=== PATIENT | female | born 1960 | race Caucasian/White ===

== ENCOUNTER → 2019-03-16 | Outpatient (CLI) | payer BC ==
--- NOTE | 2019-03-17 12:53 | MM ---
Reason for exam: screening (asymptomatic). Last mammogram was performed 2 years and 11 months ago. History: Patient is postmenopausal. Family history of breast cancer in maternal aunt at age 50. Benign right mammotome panel of the right breast, July 20, 2012. Physical Findings: A clinical breast exam by your physician is recommended on an annual basis and results should be correlated with mammographic findings. MG Screening Mammo w CAD Bilateral CC and MLO view(s) were taken. XCCM view(s) were taken of the right breast. Prior study comparison: April 17, 2016, bilateral MG screening mammo w CAD. April 12, 2015, bilateral MG diagnostic mammo w CAD THI. The breast tissue is heterogeneously dense. This may lower the sensitivity of mammography. Previous mammotome biopsy in the right breast. There is chronic nodularity in the left breast. There is no discrete abnormality. ASSESSMENT: Benign, BI-RAD 2 RECOMMENDATION: Routine screening mammogram of both breasts in 1 year.
== END | disposition home or self-care (01) ==
LOC: RADMAMWWP 12:03
PROVIDERS: ATTEND Family Medicine
DX: Z12.31 Encounter for screening mammogram for malignant neoplasm of breast (principal)
CPT/HCPCS: 77067

== ENCOUNTER → 2019-06-26 | Outpatient (CLI) | payer BC ==
--- NOTE | 2019-06-27 08:24 | CT ---
EXAMINATION TYPE: CT abdomen pelvis w con DATE OF EXAM: 06/26/2019 COMPARISON: None HISTORY: Pt c/o RT side abdomen pain by ribs, that radiates both anterior and posterior CT DLP: 1434 mGycm Automated exposure control for dose reduction was used. TECHNIQUE: Helical acquisition of images was performed from the lung bases through the pelvis. CONTRAST: Performed with Oral Contrast and with IV Contrast, patient injected with 100 mL of Isovue 300. FINDINGS: LUNG BASES: No significant abnormality is appreciated. LIVER/GB: Hepatomegaly and diffuse fatty infiltration of the liver with focal fatty sparing around th e gallbladder fossa. No intrahepatic lesion identified. Gallbladder appears normal. Intrahepatic and extrahepatic biliary ducts appear normal. PANCREAS: No significant abnormality is seen. SPLEEN: No significant abnormality is seen. ADRENALS: No significant abnormality is seen. KIDNEYS: No significant abnormality is seen. FREE AIR: No free air is visualized. RETROPERITONEAL ADENOPATHY: None visualized REPRODUCTIVE ORGANS: No significant abnormality is seen URINARY BLADDER: No significant abnormality is seen. PELVIC ADENOPATHY: None visualized. OSSEOUS STRUCTURES: No significant abnormality is seen. BOWEL: No significant abnormality is seen. IMPRESSION: HEPATOMEGALY AND HEPATIC STEATOSIS. NO INTRAHEPATIC LESION IDENTIFIED.
== END | disposition home or self-care (01) ==
LOC: RADCTMAIN 14:49
PROVIDERS: ATTEND Family Medicine
DX: K76.0 Fatty (change of) liver, not elsewhere classified (principal)
CPT/HCPCS: 74177; Q9967

== ENCOUNTER 2020-06-04 08:32 | Day surgery (SDC) | payer BC ==
[~2020-06-04 08:32] MED LIST: LACTATED RINGERS 1,000 ML IV SCH
[2020-06-04 08:50] VITALS: TEMP 97.8
[2020-06-04] MEDS ORDERED: LIDOCAINE 1% (10MG/ML) FOR IV START INTRADERMA ONE (08:50)
[2020-06-04] MEDS ORDERED: LACTATED RINGERS 1,000 ML IV ONE (08:50)
[2020-06-04] MEDS ORDERED: PROPOFOL 10 MG/ML 20 ML VIAL IV ONE (09:31)
--- NOTE | 2020-06-04 09:35 | P.GSHP ---
History of Present Illness H&P Date: 06/04/20 Chief Complaint: Colon cancer screening Patient is here today for colonoscopy. Last colonoscopy 10 years ago. That study was normal. Some right-sided abdominal pain. CAT scans normal. Family history of colon cancer in her aunt. No bowel complaints. Past Medical History Past Medical History: No Reported History History of Any Multi-Drug Resistant Organisms: None Reported Past Surgical History: Orthopedic Surgery Additional Past Surgical History / Comment(s): ARTHRO OF LEFT KNEE Past Anesthesia/Blood Transfusion Reactions: Motion Sickness Past Psychological History: No Psychological Hx Reported Smoking Status: Never smoker Past Alcohol Use History: Rare Past Drug Use History: None Reported Medications and Allergies Home Medications Medication Instructions Recorded Confirmed Type No Known Home Medications 05/31/20 05/31/20 History Allergies Allergy/AdvReac Type Severity Reaction Status Date / Time No Known Allergies Allergy Verified 05/31/20 11:09 Surgical - Exam Vital Signs Temp Pulse Resp BP Pulse Ox 97.8 F 70 18 152/81 99 06/04/20 08:49 06/04/20 08:49 06/04/20 08:49 06/04/20 08:49 06/04/20 08:49 Physical exam: General: Well-developed, well-nourished HEENT: Normocephalic, sclerae nonicteric Abdomen: Nontender, nondistended Extremities: No edema Neuro: Alert and oriented Assessment and Plan (1) Colon cancer screening Narrative/Plan: Will proceed with colonoscopy Current Visit: Yes Status: Acute Code(s): Z12.11 - ENCOUNTER FOR SCREENING FOR MALIGNANT NEOPLASM OF COLON SNOMED Code(s): 736354632
--- NOTE | 2020-06-04 09:51 | P.PCN ---
Date of Procedure: 06/04/20 Procedure(s) Performed: PREOPERATIVE DIAGNOSIS: Colon cancer screening POSTOPERATIVE DIAGNOSIS: Normal exam PROCEDURE: Colonoscopy ANESTHESIA: MAC SURGEON: Garrett Rai M.D. SPECIMENS: None ENDOSCOPIC PROCEDURE: The patient was placed on the endoscopy table in the left decubitus position. The Olympus colonoscope was inserted into the anus and passed under direct visualization to the base of the cecum. The appendiceal orifice was visualized. From that point the scope was slowly withdrawn inspecti ng all surfaces carefully. There were no neoplastic inflammatory or polypoid lesions throughout the cecum, ascending, transverse, descending, sigmoid and rectum. There was no visible diverticulosis noted. Digital rectal examination was normal. The patient was taken to the recovery room in stable condition per anesthesia guidelines. RECOMMENDATIONS: Increase fiber. Follow-up colonoscopy in 10 years.
[2020-06-04 10:09] VITALS: BP 127/83; PULSE 64; RESP 15
== END 2020-06-04 11:02 | disposition home or self-care (01) ==
LOC: ORWHC2ENDO 08:32
PROVIDERS: ATTEND Surgery
DX: Z12.11 Encounter for screening for malignant neoplasm of colon (principal); Z80.0 Family history of malignant neoplasm of digestive organs; Z98.890 Other specified postprocedural states
CPT/HCPCS: G0105; J2704

== ENCOUNTER 2020-09-14 14:15 | Observation (INO) | payer BC ==
[2020-09-14] MEDS ORDERED: NITROGLYCERIN OINT 1 INCH/GM PACKET TOPICAL STA (14:32)
[2020-09-14] MEDS ORDERED: NITROGLYCERIN SL TABS 0.4 MG TAB SUBLINGUAL STA (14:32)
[2020-09-14] MEDS ORDERED: ASPIRIN 81 MG PO STA (14:32)
--- NOTE | 2020-09-14 14:45 | ED ---
General Adult HPI - General Source: patient, RN notes reviewed, old records reviewed Mode of arrival: ambulatory Limitations: no limitations <Shaggy Flanagan - Last Filed: 09/14/20 14:46> <Jaguar Gutiérrez - Last Filed: 09/14/20 16:36> - General Chief complaint: Chest Pain Stated complaint: chest pain Time Seen by Provider: 09/14/20 14:20 - History of Present Illness Initial comments: This is a 60-year-old female presents emergency Department complaining of chest pressure that started this morning at approximately 7:00 this morning. Patient states the pain did radiate to her left shoulder a little and the pain still is persistent. Patient states the pain is less than it was earlier but it still there. Patient denies any difficulty breathing shortness of breath per patient denies any diaphoretic episodes. Patient denies any nausea. Patient denies lightheadedness dizziness or near syncopal episode. Patient denies any headache patient denies numbness weakness. Patient denies any abdominal pain patient denies nausea vomiting diarrhea. She denies any recent fever chills. Patient denies any calf pain or leg swelling. (Shaggy Flanagan) - Related Data Home Medications Medication Instructions Recorded Confirmed Aspirin 81 mg PO ONCE PRN 09/14/20 09/14/20 Allergies Allergy/AdvReac Type Severity Reaction Status Date / Time No Known Allergies Allergy Verified 09/14/20 16:28 Review of Systems ROS Other: All systems not noted in ROS Statement are negative. <Shaggy Flanagan - Last Filed: 09/14/20 14:46> ROS Other: All systems not noted in ROS Statement are negative. <Jaguar Gutiérrez - Last Filed: 09/14/20 16:36> ROS Statement: Those systems with pertinent positive or pertinent negative responses have been documented in the HPI. Past Medical History Past Medical History: No Reported History History of Any Multi-Drug Resistant Organisms: None Reported Past Surgical History: Orthopedic Surgery Additional Past Surgical History / Comment(s): ARTHRO OF LEFT KNEE, Past Anesthesia/Blood Transfusion Reactions: Motion Sickness Past Psychological History: No Psychological Hx Reported Smoking Status: Never smoker Past Alcohol Use History: Rare Past Drug Use History: None Reported <Shaggy Flanagan - Last Filed: 09/14/20 14:46> General Exam Limitations: no limitations <Shaggy Flanagan - Last Filed: 09/14/20 14:46> - General Exam Comments Initial Comments: GENERAL: Patient is well-developed and well-nourished. Patient is nontoxic and well- hydrated and is in mild distress. ENT: Neck is soft and supple. No significant lymphadenopathy is noted. Oropharynx is clear. Moist mucous membranes. Neck has full range of motion without eliciting any pain EYES: The sclera were anicteric and conjunctiva were pink and moist. Extraocular movements were intact and pupils were equal round and reactive to light. Eyelids were unremarkable. PULMONARY: Unlabored respirations. Good breath sounds bilaterally. No audible rales rhonchi or wheezing was noted. CARDIOVASCULAR: There is a regular rate and rhythm without any murmurs gallops or rubs. ABDOMEN: Soft and nontender with normal bowel sounds. SKIN: Skin is clear with no lesions or rashes and otherwise unremarkable. NEUROLOGIC: Patient is alert and oriented x3. Cranial nerves II through XII are grossly intact. Motor and sensory are also intact. Normal speech, volume and content. Symmetrical smile. MUSCULOSKELETAL: Normal extremities with adequate strength and full range of motion. No lower extremity swelling or edema. No calf tenderness. LYMPHATICS: No significant lymphadenopathy is noted PSYCHIATRIC: Normal psychiatric evaluation. (Shaggy Flanagan) Course <Jaguar Gutiérrez - Last Filed: 09/14/20 16:36> Vital Signs 09/14/20 09/14/20 14:19 15:15 Temperature 98.3 F Pulse Rate 70 62 Respiratory 18 18 Rate Blood Pressure 176/96 154/89 O2 Sat by Pulse 97 99 Oximetry - Reevaluation(s) Reevaluation #1: 09/14/20 16:34 Patient was endorsed me by Dr. Flanagan pending laboratory work. Patient did have chest pain was about 2/10 severity on my initial exam but this did quickly resolved. The patient does have nitroglycerin paste. The patient's initial workup appears be negative for acute findings however this. The presentation is consistent with angina. I did a long discussion with the patient and her who is a cardiac patient patient be admitted with cardiology consultation. Currently is pain-free. 09/14/20 16:35 Case is discussed with Dr. Blount (Jaguar Gutiérrez) Medical Decision Making <Shaggy Flanagan - Last Filed: 09/14/20 14:46> - Lab Data Result diagrams: 09/14/20 14:46 09/14/20 14:46 <Jaguar Gutiérrez - Last Filed: 09/14/20 16:36> - Medical Decision Making EKG shows normal sinus rhythm at 71 bpm WV interval 146 dresses 92 QT interval is 428 QTC is 465. Patient's EKG shows no ST segment elevation or depression. Dr. Gutiérrez will be taking over the care of this patient at 3 PM. (Shaggy Flanagan) - Lab Data Lab Results 09/14/20 09/14/20 09/14/20 Range/Units 14:46 14:46 14:46 WBC 9.4 (3.8-10.6) k/uL RBC 5.29 (3.80-5.40) m/uL Hgb 15.6 (11.4-16.0) gm/dL Hct 46.9 H (34.0-46.0) % MCV 88.6 (80.0-100.0) fL MCH 29.6 (25.0-35.0) pg MCHC 33.4 (31.0-37.0) g/dL RDW 12.3 (11.5-15.5) % Plt Count 375 (150-450) k/uL Neutrophils % 51 % Lymphocytes % 37 % Monocytes % 6 % Eosinophils % 3 % Basophils % 1 % Neutrophils # 4.7 (1.3-7.7) k/uL Lymphocytes # 3.5 (1.0-4.8) k/uL Monocytes # 0.5 (0-1.0) k/uL Eosinophils # 0.3 (0-0.7) k/uL Basophils # 0.1 (0-0.2) k/uL PT 10.7 (9.0-12.0) sec INR 1.0 (<1.2) APTT 27.9 (22.0-30.0) sec Sodium 138 (137-145) mmol/L Potassium 4.0 (3.5-5.1) mmol/L Chloride 104 (98-107) mmol/L Carbon Dioxide 29 (22-30) mmol/L Anion Gap 5 mmol/L BUN 12 (7-17) mg/dL Creatinine 0.78 (0.52-1.04) mg/dL Est GFR (CKD-EPI)AfAm >90 (>60 ml/min/1.73 sqM) Est GFR (CKD-EPI)NonAf 83 (>60 ml/min/1.73 sqM) Glucose 113 H (74-99) mg/dL Calcium 9.2 (8.4-10.2) mg/dL Magnesium 2.1 (1.6-2.3) mg/dL Total Bilirubin 0.5 (0.2-1.3) mg/dL AST 36 (14-36) U/L ALT 31 (4-34) U/L Alkaline Phosphatase 85 (38-126) U/L Troponin I (0.000-0.034) ng/mL Total Protein 7.4 (6.3-8.2) g/dL Albumin 4.4 (3.5-5.0) g/dL 09/14/20 Range/Units 14:46 WBC (3.8-10.6) k/uL RBC (3.80-5.40) m/uL Hgb (11.4-16.0) gm/dL Hct (34.0-46.0) % MCV (80.0-100.0) fL MCH (25.0-35.0) pg MCHC (31.0-37.0) g/dL RDW (11.5-15.5) % Plt Count (150-450) k/uL Neutrophils % % Lymphocytes % % Monocytes % % Eosinophils % % Basophils % % Neutrophils # (1.3-7.7) k/uL Lymphocytes # (1.0-4.8) k/uL Monocytes # (0-1.0) k/uL Eosinophils # (0-0.7) k/uL Basophils # (0-0.2) k/uL PT (9.0-12.0) sec INR (<1.2) APTT (22.0-30.0) sec Sodium (137-145) mmol/L Potassium (3.5-5.1) mmol/L Chloride (98-107) mmol/L Carbon Dioxide (22-30) mmol/L Anion Gap mmol/L BUN (7-17) mg/dL Creatinine (0.52-1.04) mg/dL Est GFR (CKD-EPI)AfAm (>60 ml/min/1.73 sqM) Est GFR (CKD-EPI)NonAf (>60 ml/min/1.73 sqM) Glucose (74-99) mg/dL Calcium (8.4-10.2) mg/dL Magnesium (1.6-2.3) mg/dL Total Bilirubin (0.2-1.3) mg/dL AST (14-36) U/L ALT (4-34) U/L Alkaline Phosphatase (38-126) U/L Troponin I <0.012 (0.000-0.034) ng/mL Total Protein (6.3-8.2) g/dL Albumin (3.5-5.0) g/dL Critical Care Time Critical Care Time: Yes Total Critical Care Time: 31 <Jaguar Gutiérrez - Last Filed: 09/14/20 16:36> Critical Care Time: Critical care time includes initial presentation with history physical labs x-ra ys reevaluation the patient by me. Discussed with the patient family regarding findings discussed with Dr. Blount admitting orders documentation of the above (Jaguar Gutiérrez) Disposition <Shaggy Flanagan - Last Filed: 09/14/20 14:46> <Jaguar Gutiérrez - Last Filed: 09/14/20 16:36> Clinical Impression: Chest pain, Unstable angina pectoris Disposition: ADMITTED IP TO THIS [facility] Condition: Stable Referrals: Jurgen Lacy MD [Primary Care Provider] - 1-2 days
[2020-09-14 15:00] LABS: Basophils # (A) 0.1 k/uL (0-0.2); Basophils % (A) 1 %; Eosinophils # (A) 0.3 k/uL (0-0.7); Eosinophils % (A) 3 %; HCT 46.9 % (34.0-46.0); HGB 15.6 gm/dL (11.4-16.0); Lymphocytes # (A) 3.5 k/uL (1.0-4.8); Lymphocytes % (A) 37 %; MCH 29.6 pg (25.0-35.0); MCHC 33.4 g/dL (31.0-37.0); MCV 88.6 fL (80.0-100.0); Mean Platelet Volume 6.7; Monocytes # (A) 0.5 k/uL (0-1.0); Monocytes % (A) 6 %; Neutrophils # (A) 4.7 k/uL (1.3-7.7); Neutrophils % (A) 51 %; Platelet Count 375 k/uL (150-450); RBC 5.29 m/uL (3.80-5.40); RDW 12.3 % (11.5-15.5); WBC 9.4 k/uL (3.8-10.6)
[2020-09-14 15:09] LABS: ALT 31 U/L (4-34); AST 36 U/L (14-36); African American GFR (CKD) >90 (>60 ml/min/1.73 sqM); Albumin 4.4 g/dL (3.5-5.0); Alkaline Phosphatase 85 U/L (38-126); Anion Gap 5 mmol/L; Blood Urea Nitrogen 12 mg/dL (7-17); Calcium 9.2 mg/dL (8.4-10.2); Carbon Dioxide 29 mmol/L (22-30); Chloride 104 mmol/L (98-107); Glucose 113 mg/dL (74-99); Magnesium 2.1 mg/dL (1.6-2.3); Non-African American GFR(CKD) 83 (>60 ml/min/1.73 sqM); Sodium 138 mmol/L (137-145); Total Bilirubin 0.5 mg/dL (0.2-1.3); Total Protein 7.4 g/dL (6.3-8.2)
[2020-09-14 15:12] LABS: Partial Thromboplastin Time 27.9 sec (22.0-30.0); Prothrombin Time 10.7 sec (9.0-12.0)
--- NOTE | 2020-09-14 15:16 | XR ---
EXAMINATION TYPE: XR chest 2V DATE OF EXAM: 09/14/2020 COMPARISON: None INDICATION: Chest pain left side TECHNIQUE: Frontal and lateral views of the chest are obtained. FINDINGS: The heart size is normal. The pulmonary vasculature is normal. The lungs are clear. IMPRESSION: 1. No acute pulmonary process.
[2020-09-14] MEDS ORDERED: HEPARIN SODIUM,PORCINE 5,000 UNIT/ML 1 ML VIAL IV ONE (16:36)
[2020-09-14] MEDS ORDERED: HEPARIN SOD,PORK IN 0.45% NACL 25,000 UNIT in 0.45% NACL 1 250ML.BAG IV SCH (16:45)
[2020-09-14] MEDS ORDERED: SODIUM CHLORIDE 0.9% 1,000 ML IV SCH (16:45)
[2020-09-14] MEDS: NITROGLYCERIN OINT 1 INCH/GM PACKET TOPICAL SCH ×2 (18:15→22:35)
[2020-09-14] MEDS: ACETAMINOPHEN TAB 325 MG TAB PO PRN (19:47)
[2020-09-14] MEDS: NITROGLYCERIN SL TABS 0.4 MG TAB SUBLINGUAL PRN ×2 (22:07→22:16)
--- NOTE | 2020-09-14 22:36 | P.HPIM ---
History of Present Illness H&P Date: 09/14/20 Chief Complaint: Chest Pressure Patient is a 60-year-old female without significant past medical history came to ER with complaints of chest pressure. Patient states that she developed mid retrosternal and left sided chest pain started around 7 this morning and did radiate to the left shoulder. Pain is associated with nausea and no episodes of vomiting. No complaints of shortness of breath or diaphoresis. Patient has been having constant pain until she arrived in the ER. Patient was given a dose of aspirin and nitroglycerin which seems to subsided the pain. Patient is currently complaining of headache. No blurriness of vision and no focal weakness. Patient otherwise denied any complaints of recent illnesses. No fever no chills. No cough or sputum production. No nausea vomiting or abdominal pain or diarrhea. No leg swelling. No palpitations. No syncopal episode. Chest x-ray showed no acute pulmonary process EKG showed normal sinus rhythm Laboratory data showed troponin x1 - AST ALT alk phos within normal limits. Liver and laboratory data reviewed. Review of Systems Constitutional: Patient denies any fever or chills . No generalized weakness or weight loss. Abdomen: Patient denied nausea vomiting and diarrhea and abdominal pain. Cardiovascular: Patient denies any chest pain or short of breath no palpitations. Respiratory: patient denied any cough or sputum production. No shortness of breath Neurologic: Patient denied any numbness or tingling headache. Musculoskeletal: Patient denies any complaints of joint swelling or deformity. Skin: Negative Psychiatric: Negative Endocrine: No heat or cold intolerance. No recent weight gain. Genitourinary: No dysuria or hematuria. All other 14 point ROS negative except the above Past Medical History Past Medical History: No Reported History History of Any Multi-Drug Resistant Organisms: None Reported Past Surgical History: Orthopedic Surgery Additional Past Surgical History / Comment(s): ARTHRO OF LEFT KNEE, Past Anesthesia/Blood Transfusion Reactions: Motion Sickness Past Psychological History: No Psychological Hx Reported Smoking Status: Never smoker Past Alcohol Use History: Rare Past Drug Use History: None Reported - Past Family History Mother Family Medical History: Chest Pain / Angina, Dementia, Hypertension Additional Family Medical History / Comment(s): Alzheimers Father Family Medical History: Dementia, Myocardial Infarction ([place]) Medications and Allergies Home Medications Medication Instructions Recorded Confirmed Type Aspirin 81 mg PO ONCE PRN 09/14/20 09/14/20 History Allergies Allergy/AdvReac Type Severity Reaction Status Date / Time No Known Allergies Allergy Verified 09/14/20 16:28 Physical Exam Vitals: Vital Signs Temp Pulse Pulse Resp BP BP Pulse Ox 09/14/20 17:48 97.9 F 67 16 140/89 97 09/14/20 17:15 63 18 141/79 100 09/14/20 15:15 62 18 154/89 99 09/14/20 14:19 98.3 F 70 18 176/96 97 Intake and Output 09/14/20 09/14/20 09/14/20 06:59 14:59 22:59 Other: Weight 86.183 kg PHYSICAL EXAMINATION: Patient is lying in the bed comfortably, no acute distress, awake alert and oriented.. HEENT: Normocephalic. Neck is supple. Pupils reactive. Nostrils clear. Oral cavity is moist. Ears reveal no drainage. Neck reveals no JVD, carotid bruits, or thyromegaly. CHEST EXAMINATION: Trachea is central. Symmetrical expansion. Lung chaney clear to auscultation and percussion. CARDIAC: Normal S1, S2 with no gallops. No murmurs ABDOMEN: Soft. Bowel sounds normal. No organomegaly. No abdominal bruits. Extremities: reveal no edema. No clubbing or cyanosis Neurologically awake, alert, oriented x3 with well-coordinated movements. No focal deficits noted Skin: No rash or skin lesions. Psychiatric: Coperative. Nonsuicidal Musculoskeletal: No joint swelling or deformity. Normal range of motion. Results CBC & Chem 7: 09/14/20 14:46 09/14/20 14:46 Labs: Abnormal Lab Results - Last 24 Hours (Table) 09/14/20 09/14/20 Range/Units 14:46 14:46 Hct 46.9 H (34.0-46.0) % Glucose 113 H (74-99) mg/dL Assessment and Plan Assessment: Chest pain possible unstable angina Obesity BMI 35.9 Plan: Patient will be continued on telemetry monitoring. Troponin 3. Continue with heparin drip and follow lipid profile. Will order TSH level and d-dimer level Cardiology was consulted. Continue with aspirin and statins. Further recommendations based on the clinical course. Time with Patient: Greater than 30
[2020-09-15] MEDS: ACETAMINOPHEN TAB 325 MG TAB PO PRN ×2 (02:42→10:11)
[2020-09-15] MEDS: NITROGLYCERIN OINT 1 INCH/GM PACKET TOPICAL SCH ×2 (06:12→08:15)
[2020-09-15 08:35] LABS: D-Dimer <0.17 mg/L FEU (<0.60); Partial Thromboplastin Time 51.7 sec (22.0-30.0)
[2020-09-15] MEDS ORDERED: ASPIRIN 325 MG TAB PO SCH (09:00)
[2020-09-15] MEDS ORDERED: ALPRAZolam 0.25 MG TAB PO PRN (09:26)
[2020-09-15] MEDS ORDERED: ALPRAZolam 0.5 MG TAB PO PRN (09:26)
[2020-09-15] MEDS ORDERED: NITROGLYCERIN SL TABS 0.4 MG TAB SUBLINGUAL PRN (09:26)
[2020-09-15] MEDS ORDERED: ATORVASTATIN 20 MG TAB PO SCH (09:45)
[2020-09-15] MEDS: LOSARTAN 25 MG TAB PO SCH (10:05)
--- NOTE | 2020-09-15 12:57 | P.CRDCN ---
History of Present Illness Consult date: 09/15/20 Consult reason: chest pain History of present illness: History of present illness: This is a 60-year-old female patient with no significant past medical history. Patient states she woke up and experienced left-sided chest pain that went through to her back into her shoulder. This was onset around 7 AM. She got up for a little while and sat but try to go back to sleep. By 3 PM she still had the pain, she took some aspirin at home. She has been working on [employer] in a [employer] but does not feel that she had a muscle strain from this activity. Her blood pressure at home was 188/94. She came into the hospital for evaluation and was given nitroglycerin, aspirin and Nitropaste. Her chest pain lessened and finally went away completely. She developed headache and Nitropaste was removed, approximately one hour later her chest pain returned. The pain was in the left side and went through to her back. She states that she has been under increased stress as her has extensive cardiac history and had 2 stents placed recently. 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 Initial blood pressure 176/96, heart rate 70, pulse ox 97% on room air. Initial EKG had nonspecific ST changes and repeat this morning was a normal sinus rhythm with no ST changes. CBC, CMP unremarkable except for glucose of 113 with no history of diabetes. Troponin negative on 3 draws. Triglycerides 145, cholesterol 159, LDL 85, HDL 45. TSH 1.7. D-dimer less than 0.17. Patient was started on a heparin drip which was subsequently discontinued as well as Nitropaste was discontinued. Patient started on Lipitor 20 mg daily and losartan 25 mg. Patient was provided options of stress testing or heart catheterization and shows 2 pursue heart catheterization which will be scheduled for tomorrow. Family history of father having his first myocardial infarction at age 65. Mother has history of hypertension. Social history: Patient is a lifelong nonsmoker, no alcohol use. Review Of Systems: At the time of my evaluation: Constitutional: No fever, no chills. No weakness, fatigue or lethargy. EENT: No headache. No dizziness. Lungs: No shortness of breath, cough, no sputum production. No wheezing. Cardiovascular: No chest pain, no lower extremity edema. No palpitations. No paroxysmal nocturnal dyspnea. No orthopnea. No lightheadedness or dizziness. No syncopal episodes. Abdominal: No abdominal pain. No nausea, vomiting. No diarrhea. No constipation. Genitourinary: No dysuria. Musculoskeletal: No myalgias. No muscle weakness, no gait dysfunction, no frequent falls. Integumentary: No wounds, no rash or pruritus. Neurologic: No aphasia. No facial droop. No change in mentation. No head injury. No headache. Psychiatric: Reports increased stress and anxiety. Physical examination: Gen: This is a 60-year-old female. She is resting in bed and appears to be comfortable and in no acute distress. VS: Afebrile, heart rate 69, blood pressure 148/81, pulse ox 94% on room air HEENT: Head is atraumatic, normocephalic. Pupils equal, round. Sclerae is anicteric. NECK: Supple. No JVD. No lymphadenopathy. No thyromegaly. LUNGS: Clear to auscultation. No wheezes or rhonchi. No intercostal retractions. HEART: Regular rate and rhythm. No murmur. ABDOMEN: Soft. Bowel sounds are present. No masses. No tenderness. EXTREMITIES: No pedal edema. No calf tenderness. NEUROLOGICAL: Patient is awake, alert and oriented x3. Cranial nerves 2 through 12 are grossly intact. Assessment: Chest pain with family history of RI at young age, normal troponins Uncontrolled hypertension Generalized anxiety Plan: Discontinue heparin drip Start losartan 25 mg daily and monitor blood pressure closely Scheduled for left heart catheterization tomorrow, physician performing pr ocedure to be determined Obtain 2-D echocardiogram and Doppler study to assess cardiac structure and function Further recommendations to follow based upon clinical course Thank you kindly for this consultation. Nurse practitioner note has been reviewed, I agree with documented findings and plan of care. Patient was seen and examined. Past Medical History Past Medical History: No Reported History History of Any Multi-Drug Resistant Organisms: None Reported Past Surgical History: Orthopedic Surgery Additional Past Surgical History / Comment(s): ARTHRO OF LEFT KNEE, Past Anesthesia/Blood Transfusion Reactions: Motion Sickness Past Psychological History: No Psychological Hx Reported Smoking Status: Never smoker Past Alcohol Use History: Rare Past Drug Use History: None Reported - Past Family History Mother Family Medical History: Chest Pain / Angina, Dementia, Hypertension Additional Family Medical History / Comment(s): Alzheimers Father Family Medical History: Dementia, Myocardial Infarction (RI) Medications and Allergies Home Medications Medication Instructions Recorded Confirmed Type Aspirin 81 mg PO ONCE PRN 09/14/20 09/14/20 History Allergies Allergy/AdvReac Type Severity Reaction Status Date / Time No Known Allergies Allergy Verified 09/14/20 16:28 Physical Exam Vitals: Vital Signs Temp Pulse Pulse Resp BP BP Pulse Ox 09/15/20 07:51 97.8 F 69 16 148/81 94 L 09/15/20 02:50 97.7 F 70 18 127/72 94 L 09/14/20 21:00 97.5 F L 67 18 136/75 97 09/14/20 17:48 97.9 F 67 16 140/89 97 09/14/20 17:15 63 18 141/79 100 09/14/20 15:15 62 18 154/89 99 09/14/20 14:19 98.3 F 70 18 176/96 97 Intake and Output 09/14/20 09/15/20 09/15/20 23:59 06:59 14:59 Intake Total 0 Balance 0 Intake: Intake, IV Titration Amount Heparin Sod,Pork in 0.45% NaCl 25,000 unit In 0.45 % NaCl 1 250ml.bag @ 11.6 UNITS/KG/HR 9.997 mls/hr IV .Q24H COUNTS INCLUDE 234 BEDS AT THE [facility] Rx#: [id number] Oral 0 Other: Voiding Method # Voids Weight Results 09/14/20 14:46 09/14/20 14:46 Cardiac Enzymes 09/14/20 09/14/20 09/14/20 Range/Units 14:46 14:46 18:15 AST 36 (14-36) U/L Troponin I <0.012 <0.012 (0.000-0.034) ng/mL 09/14/20 Range/Units 20:16 AST (14-36) U/L Troponin I <0.012 (0.000-0.034) ng/mL Coagulation 09/14/20 09/14/20 09/15/20 Range/Units 14:46 23:17 07:57 PT 10.7 (9.0-12.0) sec APTT 27.9 72.9 H 51.7 H (22.0-30.0) sec Lipids 09/15/20 Range/Units 07:57 Triglycerides 145 (<150) mg/dL Cholesterol 159 (<200) mg/dL HDL Cholesterol 45 (40-60) mg/dL CBC 09/14/20 Range/Units 14:46 WBC 9.4 (3.8-10.6) k/uL RBC 5.29 (3.80-5.40) m/uL Hgb 15.6 (11.4-16.0) gm/dL Hct 46.9 H (34.0-46.0) % Plt Count 375 (150-450) k/uL Comprehensive Metabolic Panel 09/14/20 Range/Units 14:46 Sodium 138 (137-145) mmol/L Potassium 4.0 (3.5-5.1) mmol/L Chloride 104 (98-107) mmol/L Carbon Dioxide 29 (22-30) mmol/L BUN 12 (7-17) mg/dL Creatinine 0.78 (0.52-1.04) mg/dL Glucose 113 H (74-99) mg/dL Calcium 9.2 (8.4-10.2) mg/dL AST 36 (14-36) U/L ALT 31 (4-34) U/L Alkaline Phosphatase 85 (38-126) U/L Total Protein 7.4 (6.3-8.2) g/dL Albumin 4.4 (3.5-5.0) g/dL Current Medications Generic Name Dose Route Start Last Admin Trade Name Freq PRN Reason Stop Dose Admin Acetaminophen 325 mg 09/14/20 19:31 09/15/20 02:42 Acetaminophen Tab 325 Mg Tab PO 325 mg Q6HR PRN Administration Fever and/ or Pain Aspirin 325 mg 09/15/20 09:00 Aspirin 325 Mg Tab PO DAILY MIR Sodium Chloride 1,000 mls @ 20 mls/hr 09/14/20 16:45 09/14/20 17:13 Saline 0.9% IV 20 mls/hr .Q24H MIR Administration Heparin Sodium/Sodium Chloride 250 mls @ 9.997 mls/hr 09/14/20 16:45 09/15/20 00:26 25,000 unit/ Sodium Chloride IV 9.6 units/kg/hr .Q24H MIR 8.274 mls/hr Titration Protocol 11.6 UNITS/KG/HR Nitroglycerin 0.4 mg 09/14/20 16:36 09/14/20 22:16 Nitroglycerin Sl Tabs 0.4 Mg Tab SUBLINGUAL 0.4 mg Q5M PRN Administration Chest Pain Nitroglycerin 1 inch 09/14/20 18:00 09/15/20 08:15 Nitroglycerin Oint 1 Inch/Gm Packet TOPICAL 1 inch Q6HR MIR Administration Intake and Output 09/14/20 09/15/20 09/15/20 23:59 06:59 14:59 Intake Total 0 Balance 0 Intake: Intake, IV Titration Amount Heparin Sod,Pork in 0.45% NaCl 25,000 unit In 0.45 % NaCl 1 250ml.bag @ 11.6 UNITS/KG/HR 9.997 mls/hr IV .Q24H COUNTS INCLUDE 234 BEDS AT THE [facility] Rx#: [id number] Oral 0 Other: Voiding Method # Voids Weight 09/14/20 14:46 09/14/20 14:46
--- NOTE | 2020-09-16 01:34 | P.PN ---
Subjective Progress Note Date: 09/15/20 Patient is a 60-year-old female without significant past medical history came to ER with complaints of chest pressure. Patient states that she developed mid retrosternal and left sided chest pain started around 7 this morning and did radiate to the left shoulder. Pain is associated with nausea and no episodes of vomiting. No complaints of shortness of breath or diaphoresis. Patient has been having constant pain until she arrived in the ER. Patient was given a dose of aspirin and nitroglycerin which seems to subsided the pain. Patient is currently complaining of headache. No blurriness of vision and no focal weakness. Patient otherwise denied any complaints of recent illnesses. No fever no c hills. No cough or sputum production. No nausea vomiting or abdominal pain or diarrhea. No leg swelling. No palpitations. No syncopal episode. Chest x-ray showed no acute pulmonary process EKG showed normal sinus rhythm Laboratory data showed troponin x3 - AST ALT alk phos within normal limits. Liver and laboratory data reviewed. 09/15/2020 Patient is currently resting in the bed comfortably. No complaints of chest pain or shortness of breath. Patient did have another episode of chest ti ghtness last night which relieved with nitroglycerin. No fever no chills. No cough or sputum production. Patient was seen by cardiology and recommended cardiac catheterization likely to be done tomorrow. Current medications reviewed. Objective - Vital Signs Vital signs: Vital Signs Temp 98.1 F 09/15/20 21:15 Pulse 64 09/15/20 21:15 Resp 16 09/15/20 15:00 BP 135/78 09/15/20 21:15 Pulse Ox 97 09/15/20 21:15 Intake & Output 09/15/20 09/15/20 09/16/20 06:59 18:59 06:59 Intake Total 480 Balance 480 Intake: Intake, IV Titration Amount Heparin Sod,Pork in 0.45% NaCl 25,000 unit In 0.45 % NaCl 1 250ml.bag @ 11.6 UNITS/KG/HR 9.997 mls/hr IV .Q24H [facility] Rx#: [id number] Oral 480 Other: Voiding Method # Voids 4 - Exam PHYSICAL EXAMINATION: Patient is lying in the bed comfortably, no acute distress, awake alert and oriented.. HEENT: Normocephalic. Neck is supple. Pupils reactive. Nostrils clear. Oral cavity is moist. Ears reveal no drainage. Neck reveals no JVD, carotid bruits, or thyromegaly. CHEST EXAMINATION: Trachea is central. Symmetrical expansion. Lung chaney clear to auscultation and percussion. CARDIAC: Normal S1, S2 with no gallops. No murmurs ABDOMEN: Soft. Bowel sounds normal. No organomegaly. No abdominal bruits. Extremities: reveal no edema. No clubbing or cyanosis Neurologically awake, alert, oriented x3 with well-coordinated movements. No focal deficits noted Skin: No rash or skin lesions. Psychiatric: Coperative. Nonsuicidal Musculoskeletal: No joint swelling or deformity. Normal range of motion. - Labs CBC & Chem 7: 09/14/20 14:46 09/14/20 14:46 Labs: Abnormal Lab Results - Last 24 Hours (Table) 09/14/20 09/15/20 Range/Units 23:17 07:57 APTT 72.9 H 51.7 H (22.0-30.0) sec Assessment and Plan Assessment: Chest pain possible unstable angina Family history of coronary disease Obesity BMI 35.9 Plan: Patient will be continued on telemetry monitoring. Troponin 3-. Heparin drip has been discontinued. Lipid profile showed LDL 85 and HDL 45 and total cholesterol 159. TSH level and d-dimer WNL Continue with aspirin and statins. Cardiology is planning for coronary angiogram tomorrow. Further recommendations based on the clinical course.
[2020-09-16] MEDS ORDERED: ASPIRIN 325 MG TAB PO ONE (06:00)
[2020-09-16] MEDS ORDERED: ATORVASTATIN 80 MG TAB PO ONE (06:00)
[2020-09-16] MEDS ORDERED: SODIUM CHLORIDE 0.9% 1,000 ML in EMPTY BAG 1 BAG IV ONE (06:00)
[2020-09-16] MEDS: LOSARTAN 25 MG TAB PO SCH (06:28)
[2020-09-16 07:01] LABS: Glucose,Whole Blood 103 mg/dL (75-99)
[2020-09-16] MEDS ORDERED: VERAPAMIL 2.5 MG/ML 2 ML AMP ONE (08:47)
[2020-09-16] MEDS ORDERED: LIDOCAINE 1% INJ 10MG/ML (20 ML MDV) ONE (08:47)
[2020-09-16] MEDS ORDERED: HEPARIN SODIUM 1,000 UN/ML (10ML VL) ONE (08:47)
[2020-09-16] MEDS ORDERED: METOPROLOL TARTRATE 12.5 MG TAB PO SCH (09:00)
[2020-09-16] MEDS ORDERED: IV FLUID CONTINUATION 800 ML IV ONE (09:03)
[2020-09-16] MEDS ORDERED: LIDOCAINE 1% INJ 10MG/ML (20 ML MDV) SQ ONE (09:08)
[2020-09-16] MEDS ORDERED: MIDAZOLAM 2 MG/2 ML VIAL IV ONE (09:11)
[2020-09-16] MEDS ORDERED: VERAPAMIL SYRINGE (5 MG/10 ML) INTRAARTER ONE (09:12)
[2020-09-16 09:29] VITALS: TEMP 97.8
[2020-09-16] MEDS ORDERED: IOPAMIDOL-370 100ML BTL INJ ONE (09:30)
[2020-09-16] MEDS ORDERED: SODIUM CHLORIDE 0.9% 1,000 ML IV SCH (09:35)
--- NOTE | 2020-09-16 10:33 | ECHOF ---
Referral Reason:LVF MEASUREMENTS -------- HEIGHT: 154.9 cm WEIGHT: 86.2 kg BP: 142/75 RVIDd: 3.2 cm (< 3.3) IVSd: 1.1 cm (0.6 - 1.1) LVIDd: 4.7 cm (3.9 - 5.3) LVPWd: 1.0 cm (0.6 - 1.1) IVSs: 1.4 cm LVIDs: 3.3 cm LVPWs: 1.3 cm LA Diam: 2.9 cm (2.7 - 3.8) LAESV Index (A-L): 14.07 ml/m Ao Diam: 2.8 cm (2.0 - 3.7) AV Cusp: 2.1 cm (1.5 - 2.6) MV EXCURSION: 13.784 mm (> 18.000) MV EF SLOPE: 64 mm/s (70 - 150) EPSS: 0.9 cm MV E Tee: 0.73 m/s MV DecT: 180 ms MV A Tee: 0.81 m/s MV E/A Ratio: 0.90 FINDINGS -------- Sinus rhythm. This was a technically good study. The left ventricular size is normal. There is borderline concentric left ventricular hypertrophy. Overall left ventricular systolic function is normal with, an EF between 55 - 60 %. The right ventricle is normal in size. Normal LA size by volume 22+/-6 ml/m2. The right atrium is normal in size. Interatrial and interventricular septum intact. The aortic valve is trileaflet and appears structurally normal. Mild mitral regurgitation is present. Trace tricuspid regurgitation present. There is no pulmonic regurgitation present. The aortic root size is normal. Normal inferior vena cava with normal inspiratory collapse consistent with estimated right atrial pre ssure of 5 mmHg. There is no pericardial effusion. CONCLUSIONS -------- 1. The left ventricular size is normal. 2. There is borderline concentric left ventricular hypertrophy. 3. Overall left ventricular systolic function is normal with, an EF between 55 - 60 %. 4. Mild mitral regurgitation is present. 5. Trace tricuspid regurgitation present. 6. There is no pericardial effusion. SOFTWARE ENGINEERING ANALYST: CAMILA Merlos
[2020-09-16 10:34] VITALS: RESP 16
--- NOTE | 2020-09-16 11:28 | PN ---
PROGRESS NOTE Mrs Benson was seen by me today. She was actually initially evaluated by Dr. Giron who advised cardiac cath. I talked to the patient and her at length, explained to him the rationale, risks, benefits, options related to cardiac cath. They understand all details and wished to proceed with the procedure. Vitals are stable, no JVD. S1-S2 heard normally. Lungs are clear. Abdomen and lower extremity exam unchanged. Plan is to proceed with cardiac cath and if normal, she can be discharged today and follow up with Dr. Giron in one week. MMODL / IJN: [id number] /
--- NOTE | 2020-09-16 11:34 | CC ---
CARDIAC CATHETERIZATION REPORT DATE OF SERVICE: 09/16/2020 PROCEDURE: Left heart catheterization and coronary angiography. PERFORMED BY: Dr. Karla Belle. Moderate conscious sedation time was 17 minutes. Patient was administered Versed. Oxygen saturation, hemodynamics and EKG were monitored closely. CLINICAL INFORMATION: Mrs. Marlene Benson is a 60-year-old lady admitted to the hospital with episode of chest pain, negative troponins, but she had chest heaviness and pressure. She has hypertension and family history of CAD. Hypertension is a new diagnosis. Because of her symptoms, she was advised cardiac cath by Dr. Giron after due discussion. I saw her this morning, talked to the patient and , explained the rationale, risks, benefits, and options. They understand all details and wished to proceed with cardiac catheterization. PROCEDURE NOTE: Under local anesthesia and strict aseptic precautions, a 6-Maldivian introducer was placed in the right radial artery. Using a JL3.5 and JR4 catheters, I performed coronary angiography and the same right catheter was used to check LV pressure but LV gram was not performed. The sheath was taken out and a TR band applied as per protocol. The saturation of the fingers of the right hand of 95%. The patient tolerated the procedure well. CARDIAC CATHETERIZATION: The left ventricular end-diastolic pressure was about 9 mmHg without gradient across the aortic valve. CORONARY ANGIOGRAPHY FINDINGS: RIGHT CORONARY ARTERY: Large dominant vessel. No significant disease distally, bifurcates into PDA and PLV. LEFT MAIN CORONARY ARTERY: Short, patent, disease-free vessel that bifurcates into LAD and circumflex. LEFT ANTERIOR DESCENDING CORONARY ARTERY: Good caliber vessel, extends along the anterior wall, gives off septal and diagonal branches. There is a large diagonal proximally, bifurcates into 2 branches. The LAD and diagonal and septal branches have minor irregularities. No significant disease noted. LEFT POSTERIOR CIRCUMFLEX CORONARY ARTERY: Technically, nondominant vessel, gives off a small high first obtuse marginal, has minor irregularities. The second obtuse marginal is large in caliber and distribution and then the AV groove branch is noted. The circumflex system is nondominant. No significant disease noted. LEFT VENTRICULOGRAM: Left ventriculogram was not performed. FINAL IMPRESSION: This patient has a right dominant system. Normal filling pressures. No gradient across the aortic valve and no significant obstructive CAD. The results were discussed with the patient and her in detail. She will be advised to continue medical therapy with risk factor modification with a statin agent and losartan. She will be discharged later on today and will see Dr. Giron in one week. MMODL / IJN: [id number] /
[2020-09-16 13:25] VITALS: BP 132/85; PULSE 59
[2020-09-17] MEDS ORDERED: ATORVASTATIN 20 MG TAB PO SCH (09:00)
[2020-09-17] MEDS ORDERED: ASPIRIN 81 MG PO SCH (09:00)
== END 2020-09-16 16:15 | disposition home or self-care (01) ==
LOC: EC 14:15 → 3NCARDOBS 16:36
PROVIDERS: ADMIT Family Medicine; ATTEND Family Medicine
DX: R07.89 Other chest pain (principal); R11.0 Nausea; R51.9 Headache, unspecified; E66.9 Obesity, unspecified; Z68.35 Body mass index [BMI] 35.0-35.9, adult; Z63.79 Other stressful life events affecting family and household; F41.1 Generalized anxiety disorder; I20.0 Unstable angina; Z79.82 Long term (current) use of aspirin; Z82.49 Family history of ischemic heart disease and other diseases of the circulatory system; Z82.0 Family history of epilepsy and other diseases of the nervous system; Z81.8 Family history of other mental and behavioral disorders
CPT/HCPCS: 93005 ×2; 96366 ×2; 96376; 96365; 99291; 36415; 93306; 93458; 85379; 80061; 80053; 84443; 83735; 84484; 85025; 85610; 85730 ×2; 71046; G0378 ×3; C1769; C1894; J2250; J1644 ×3; J2001; Q9967

== ENCOUNTER → 2022-02-05 | Outpatient (CLI) | payer BC ==
[2022-02-05 18:58] LABS: Basophils # (A) 0.05 X 10*3/uL (0.00-0.10); Basophils % (A) 0.7 %; Eosinophils # (A) 0.16 X 10*3/uL (0.04-0.35); Eosinophils % (A) 2.2 %; HCT 46.3 % (37.2-46.3); HGB 14.8 g/dL (12.0-15.0); Immature Grans, Automated 0.4 %; Lymphocytes # (A) 2.66 X 10*3/uL (0.90-5.00); Lymphocytes % (A) 36.1 %; MCH 28.4 pg (27.0-32.0); MCV 88.9 fL (80.0-97.0); Monocytes # (A) 0.67 X 10*3/uL (0.20-1.00); Monocytes % (A) 9.1 %; NRBC Per 100 WBC 0 /100 WBCS (0.0-0.0); Neutrophils % (A) 51.5 %; Platelet Count 343 X 10*3/uL (140-440); RBC 5.21 X 10*6/uL (4.10-5.20); RDW 12.8 % (11.5-14.5); WBC 7.37 X 10*3/uL (4.50-10.00)
[2022-02-05 19:06] LABS: ALT 26 U/L (8-44); AST 23 U/L (13-35); African American GFR (CKD) 69.6 (60.0-200.0); Albumin 4.5 g/dL (3.8-4.9); Albumin/Globulin Ratio 1.93 (1.60-3.17); Alkaline Phosphatase 78 U/L (41-126); Amylase 31 U/L (23-121); BUN/Creat Ratio 16.93 Ratio (12.00-20.00); Blood Urea Nitrogen 17.1 mg/dL (9.0-27.0); Calcium 9.4 mg/dL (8.7-10.3); Carbon Dioxide 24.5 mmol/L (20.0-27.5); Chloride 104 mmol/L (96-109); Chol/HDL Ratio 2.55 Ratio; Globulin 2.3 g/dL (1.6-3.3); Glucose 109 mg/dL (70-110); LDL Cholesterol,Calculated 52.7 mg/dL (0.0-131.0); Lipase 37 U/L (14-63); Potassium 5.3 mmol/L (3.5-5.5); Sodium 142 mmol/L (135-145); Total Protein 6.8 g/dL (6.2-8.2); VLDL Calculation 18.52 mg/dL (5.00-40.00)
[2022-02-05 19:21] LABS: Hepatitis A Antibody IgM Nonreactive (Nonreactive); Hepatitis B Core IgM Nonreactive (Nonreactive); Hepatitis B Surface Antigen Nonreactive (Nonreactive); Hepatitis C IgG Antibody Nonreactive (Nonreactive)
== END | disposition home or self-care (01) ==
LOC: LABWHC1 11:01
PROVIDERS: ATTEND Family Medicine
DX: E78.5 Hyperlipidemia, unspecified (principal); R10.11 Right upper quadrant pain
CPT/HCPCS: 36415; 80053; 80061; 80074; 82150; 83690; 84439; 84443; 85025

== ENCOUNTER → 2022-02-11 | Outpatient (CLI) | payer BC ==
--- NOTE | 2022-02-11 11:05 | US ---
EXAMINATION TYPE: US abdomen complete DATE OF EXAM: 02/11/2022 COMPARISON: CT 2018, US 2011 CLINICAL HISTORY: R10.11 RT UPPER QUAD PAIN. Intermittent right flank pain x 3 years EXAM MEASUREMENTS: Liver Length: 16.1 cm Gallbladder Wall: 0.2 cm CBD: 0.3 cm Spleen: n/a Right Kidney: 9.3 x 4.3 x 4.9 cm Left Kidney: 10.0 x 5.3 x 4.8 cm Pancreas: visualized portions wnl, limited by overlying midline bowel gas Liver: attenuating, heterogeneous with 1.7cm hypoechoic area adjacent to gallbladder, probable focal sparing Gallbladder: wnl Evidence for sonographic Cristobal's sign: no CBD: visualized portions wnl, limited by overlying bowel gas Spleen: obscured by overlying bowel gas Right Kidney: wnl Left Kidney: wnl Upper IVC: wnl Abd Aorta: wnl No aneurysm and the visualized abdominal aorta. Suboptimal evaluation of pancreas on images saved. Vi sualized liver is heterogeneously hyperechoic. Evaluation for focal masses suboptimal due to the hete rogeneity. There is no evidence of shadowing mobile cholelithiasis. Common bile duct is unremarkable . Kidneys are symmetric and free of hydronephrosis. No renal lesions are seen on images obtained. Spleen is not successfully visualized on today's study. IMPRESSION: Suboptimal study particularly evaluation of spleen and pancreas. Probable marked fatty in filtration of liver redemonstrated. No acute findings identified.
== END | disposition home or self-care (01) ==
LOC: RADUSWWP 09:45
PROVIDERS: ATTEND Family Medicine
DX: R10.11 Right upper quadrant pain (principal)
CPT/HCPCS: 76700

== ENCOUNTER → 2023-03-26 | Outpatient (CLI) | payer BC ==
--- NOTE | 2023-03-29 18:27 | MM ---
Reason for Exam: Screening (asymptomatic). Last mammogram was performed 1 year(s) and 1 month(s) ago. Patient History: Menarche at age 12. First Full-Term at age 24. Postmenopausal. Patient has history of breast feeding. 07/20/2012, Benign Core Biopsy on the right side. Maternal aunt had breast cancer, age 50. Risk Values: Zulema 5 year model risk: 1.6%. NCI Lifetime model risk: 7.3%. Prior Study Comparison: 04/17/2016 Bilateral Screening Mammogram, [facility]. 03/16/2019 Bilateral Screening Mammogram, [facility]. 02/18/2022 Bilateral Screening Mammogram, [facility] WITH [facility]. Tissue Density: There are scattered fibroglandular densities. Findings: Analyzed By CAD. There is chronic nodularity medial left breast. Microclip lateral right breast from prior biopsy. There is no suspicious group of microcalcifications or new suspicious mass in either breast. Overall Assessment: Benign, BI-RAD 2 Management: Screening Mammogram of both breasts in 1 year. . Patient should continue monthly self-breast exams. A clinical breast exam by your physician is recommended on an annual basis. This exam should not preclude additional follow-up of suspicious palpable abnormalities. Note on Zulema scores and lifetime risk: 1. A Zulema score greater than 3% is considered moderate risk. If this is the case, consider specialist referral to assess eligibility for a risk reducing agent. 2. If overall lifetime risk for the development of breast cancer is 20% or higher, the patient may qualify for future screening with alternating mammogram and breast MRI. Electronically signed and approved by: Marcelo Patel M.D. Radiologist
== END | disposition home or self-care (01) ==
LOC: RADMAMWWP 06:47
PROVIDERS: ATTEND Family Medicine
DX: Z12.31 Encounter for screening mammogram for malignant neoplasm of breast (principal); Z78.0 Asymptomatic menopausal state; Z80.3 Family history of malignant neoplasm of breast
CPT/HCPCS: 77063; 77067

== ENCOUNTER → 2023-05-24 | Outpatient (CLI) | payer BC ==
[2023-05-24 11:33] LABS: Chol/HDL Ratio 2.37 Ratio; LDL Cholesterol,Calculated 48.2 mg/dL (0.0-131.0); VLDL Calculation 16.46 mg/dL (5.00-40.00)
[2023-05-24 11:34] LABS: ALT 26 U/L (8-44); AST 26 U/L (13-35); Albumin 4.4 d/dL (3.8-4.9); Albumin/Globulin Ratio 1.57 Ratio (1.60-3.17); Alkaline Phosphatase 85 U/L (41-126); Blood Urea Nitrogen 11.6 mg/dL (9.0-27.0); Calcium 9.2 mg/dL (8.7-10.3); Carbon Dioxide 25.7 mmol/L (21.6-31.8); Chloride 104 mmol/L (96-109); Globulin 2.8 d/dL (1.6-3.3); Glucose 105 mg/dL (70-110); Potassium 4.5 mmol/L (3.5-5.5); Sodium 141 mmol/L (135-145); Total Bilirubin 0.3 mg/dL (0.3-1.2); Total Protein 7.2 d/dL (6.2-8.2)
[2023-05-24 11:48] LABS: Basophils # (A) 0.08 X 10*3/uL (0.00-0.10); Basophils % (A) 0.8 %; Eosinophils # (A) 0.29 X 10*3/uL (0.04-0.35); Eosinophils % (A) 2.9 %; HCT 44.8 % (37.2-46.3); HGB 14.6 d/dL (12.0-15.0); Lymphocytes # (A) 2.87 X 10*3/uL (0.90-5.00); Lymphocytes % (A) 28.7 %; MCH 28.9 pg (27.0-32.0); MCHC 32.6 d/dL (32.0-37.0); MCV 88.7 FL (80.0-97.0); Mean Platelet Volume 9.7 FL (9.5-12.2); NRBC Per 100 WBC 0 X 10*3/uL (0.00-0.01); Neutrophils # (A) 5.82 X 10*3/uL (1.80-7.70); Neutrophils % (A) 58.3 %; Platelet Count 379 X 10*3/uL (140-440); RBC 5.05 X 10*6/uL (4.10-5.20); WBC 9.99 X 10*3/uL (4.50-10.00)
== END | disposition home or self-care (01) ==
LOC: LABWHC1 07:27
PROVIDERS: ATTEND Family Medicine
DX: E78.5 Hyperlipidemia, unspecified (principal); E55.9 Vitamin D deficiency, unspecified
CPT/HCPCS: 36415; 80053; 80061; 82306; 84443; 85025

== ENCOUNTER → 2024-10-11 | Outpatient (CLI) | payer BC ==
--- NOTE | 2024-10-16 08:52 | MM ---
Reason for Exam: Screening (asymptomatic). Last mammogram was performed 1 year(s) and 6 month(s) ago. Patient History: Menarche at age 12. First Full-Term at age 24. Postmenopausal. Patient has history of breast feeding. 07/20/2012, Benign Core Biopsy on the right side. Maternal aunt had breast cancer, age 50. Risk Values: Zulema 5 year model risk: 1.7%. NCI Lifetime model risk: 6.9%. Prior Study Comparison: 03/16/2019 Bilateral Screening Mammogram, [facility]. 02/18/2022 Bilateral Screening Mammogram, [facility]. 03/26/2023 Bilateral MG 3D screening mammo w/cad, [facility]. Tissue Density: There are scattered areas of fibroglandular density. Findings: Analyzed By CAD. Right breast biopsy clip. Right breast: There is no suspicious group of microcalcifications or new suspicious mass. Left breast: There is no suspicious group of microcalcifications or new suspicious mass. Overall Assessment: Negative, BI-RAD 1 Management: Screening Mammogram of both breasts in [address] [facility] will attempt to contact patient to return for supplemental views and ultrasound if indicated. Patient should continue monthly self-breast exams. A clinical breast exam by your physician is recommended on an annual basis. This exam should not preclude additional follow-up of suspicious palpable abnormalities. Note on Zulema scores and lifetime risk: 1. A Zulema score greater than 3% is considered moderate risk. If this is the case, consider specialist referral to assess eligibility for a risk reducing agent. 2. If overall lifetime risk for the development of breast cancer is 20% or higher, the patient may qualify for future screening with alternating mammogram and breast MRI. [facility], , 10/16/2024 8:49 AM. Electronically signed and approved by: Jaguar George DO
== END | disposition home or self-care (01) ==
LOC: RADMAMWWP 13:34
PROVIDERS: ATTEND Family Medicine
DX: Z12.31 Encounter for screening mammogram for malignant neoplasm of breast (principal); Z78.0 Asymptomatic menopausal state; Z80.3 Family history of malignant neoplasm of breast; R92.323 Mammographic fibroglandular density, bilateral breasts
CPT/HCPCS: 77063; 77067